=== PATIENT | male | born 1945 | race Hispanic/Latino ===

== ENCOUNTER 2020-09-27 18:22 | Emergency (ER) | payer MEDICARE ==
[~2020-09-27] VITALS: Ht 172.7 cm; Wt 81.6 kg
--- NOTE | 2020-09-27 19:03 | NUR ---
received patient to room 8
--- NOTE | 2020-09-27 19:36 | Emergency Department Note ---
History of Present Illnes History of Present Illness Chief Complaint: General Medicine Complaints History of Present Illness This is a 74 year old male Patient in from home with complaints of poor balance, weakness, disoriented and numbness to his legs that started about 1 hour prior to arrival. Patient denies similar symptoms in the past. Patient states that he still has numbness and poor balance. Patient was ambulatory into triage with assistance from family member. . Historian: Patient, Family Member Arrival Mode: Car Onset (how long ago): hour(s) (starte at 1620) Location: all over Quality: weak all over, dizziness Radiation: Reports non-radiation Severity: moderate Onset quality: sudden Duration (how long): hour(s) (3) Timing of current episode: constant Progression: unchanged Chronicity: new Context: Denies recent illness, Denies recent surgery Relieving factors: none Exacerbating factors: movement Associated symptoms: Reports weakness (all over); Denies confusion Past Medical/Family History Physician Review I have reviewed the patient's past medical and family history. Any updates have been documented here. Past Medical History Recent Fever: No Clinical Suspicion of Infectio: No New/Unexplained Change in Ment: No Past Medical History: Hypertension, Diabetes Other Medical History: BPH Past Surgical History: CABG Social History Smoking Cessation: Never Smoker Counseling Performed: No Alcohol Use: Occasional Any Illegal Drug Use: No Review of Systems Review of Systems Constitutional: Reports no symptoms EENTM: Reports no symptoms Cardiovascular: Reports no symptoms Respiratory: Reports no symptoms Gastrointestinal: Reports no symptoms Genitourinary: Reports no symptoms Musculoskeletal: Reports no symptoms Integumentary: Reports no symptoms Neurological: Reports as per HPI Psychological: Reports no symptoms Endocrine: Reports no symptoms Hematological/Lymphatic: Reports no symptoms Physical Exam Related Data Allergies: Coded Allergies: No Known Allergies (Unverified , 09/27/20) Triage Vital Signs Vital Signs Date Time Temp Pulse Resp B/P (MAP) Pulse Ox O2 Delivery O2 Flow Rate FiO2 09/27/20 18:35 98.3 89 16 192/88 100 09/27/20 19:26 Room Air Vital signs reviewed: Yes Physical Exam CONSTITUTIONAL Constitutional: Present well-developed, Present well-nourished; Absent distressed HENT HENT: Present normocephalic, Present atraumatic, Present oropharynx clear/moist, Present nose normal HENT L/R: Present left ext ear normal, Present right ext ear normal EYES Eyes: Reports PERRL, Reports conjunctivae normal NECK Neck: Present ROM normal PULMONARY Pulmonary: Present effort normal, Present breath sounds normal CARDIOVASCULAR Cardiovascular: Present regular rhythm, Present heart sounds normal, Present capillary refill normal, Present normal rate GASTROINTESTINAL Abdominal: Present soft, Present nontender, Present bowel sounds normal GENITOURINARY Genitourinary: Present exam deferred SKIN Skin: Present warm, Present dry MUSCULOSKELETAL Musculoskeletal: Present ROM normal NEUROLOGICAL Neurological: Present alert, Present oriented x 3, Present no gross motor or sensory deficits, Present abnormal gait (gait mildy unsteady requires mild a ssistance with ambulation) PSYCHOLOGICAL Psychological: Present mood/affect normal, Present judgement normal Results Laboratory Laboratory Laboratory Tests Test 09/27/20 20:39 09/27/20 20:13 09/27/20 18:40 Urine Opiates Screen Negative (NEGATIVE) Urine Methadone Screen Negative (NEGATIVE) Urine Barbiturates Screen Negative (NEGATIVE) Urine Phencyclidine Screen Negative (NEGATIVE) Urine Amphetamines Screen Negative (NEGATIVE) Urine Methamphetamines Screen Negative (NEGATIVE) Urine Benzodiazepines Screen Negative (NEGATIVE) Urine Cocaine Screen Negative (NEGATIVE) Urine Cannabinoids Screen Positive (NEGATIVE) Urine Color Yellow (YELLOW) Urine Clarity Sl cloudy (CLEAR) Urine pH 5.5 (5 - 7) Urine Specific [place] 1.015 (1.010-1.025) Urine Protein Negative (NEGATIVE) Urine Glucose (UA) 500 (NEGATIVE) Urine Ketones Negative (NEGATIVE) Urine Blood Negative (NEGATIVE) Urine Nitrite Negative (NEGATIVE) Urine Bilirubin Negative (NEGATIVE) Urine Urobilinogen 0.2 mg/dL (0.2 - 1) Urine Leukocyte Esterase Negative (NEGATIVE) Urine RBC 0-5 /HPF (0-5) Urine WBC 0-5 /HPF (0-5) Urine Epithelial Cells Few /LPF (NONE) Urine Bacteria Rare /HPF (NONE) White Blood Count 16.13 x10e3/uL (4.8-10.8) Red Blood Count 4.33 x10e6/uL (4.3-5.7) Hemoglobin 13.1 g/dL (14.0-18.0) Hematocrit 40.3 % (38.2-49.6) Mean Corpuscular Volume 93.1 fL (81-99) Mean Corpuscular Hemoglobin 30.3 pg (28-32) Mean Corpuscular Hemoglobin Concent 32.5 g/dL (31-35) Red Cell Distribution Width 13.3 % (11.7-14.4) Platelet Count 409 x10e3/uL (140-360) Neutrophils (%) (Auto) 40.4 % (38.7-80.0) Lymphocytes (%) (Auto) 49.5 % (18.0-39.1) Monocytes (%) (Auto) 6.4 % (4.4-11.3) Eosinophils (%) (Auto) 2.3 % (0.0-6.0) Basophils (%) (Auto) 0.6 % (0.0-1.0) Neutrophils # (Auto) 6.5 (2.1-6.9) Lymphocytes # (Auto) 8.0 (1.0-3.2) Monocytes # (Auto) 1.0 (0.2-0.8) Eosinophils # (Auto) 0.4 (0.0-0.4) Basophils # (Auto) 0.1 (0.0-0.1) Absolute Immature Granulocyte (auto 0.13 x10e3/uL (0-0.1) Prothrombin Time 12.5 seconds (11.9-14.5) Prothromb Time International Ratio 0.89 Activated Partial Thromboplast Time 25.8 seconds (23.8-35.5) Sodium Level 139 mmol/L (136-145) Potassium Level 4.0 mmol/L (3.5-5.1) Chloride Level 105 mmol/L (98-107) Carbon Dioxide Level 25 mmol/L (22-29) Anion Gap 13.0 mmol/L (8-16) Blood Urea Nitrogen 11 mg/dL (7-26) Creatinine 1.14 mg/dL (0.72-1.25) Estimat Glomerular Filtration Rate > 60 ML/MIN (60-) BUN/Creatinine Ratio 10 (6-25) Glucose Level 335 mg/dL (74-118) Calcium Level 8.8 mg/dL (8.4-10.2) Total Bilirubin 0.4 mg/dL (0.2-1.2) Aspartate Amino Transf (AST/SGOT) 16 IU/L (5-34) Alanine Aminotransferase (ALT/SGPT) 17 IU/L (0-55) Alkaline Phosphatase 74 IU/L (40-150) Creatine Kinase 60 IU/L (30-200) Creatine Kinase MB 1.80 ng/mL (0-5.0) Troponin I 0.003 ng/mL (0-0.300) Total Protein 7.6 g/dL (6.5-8.1) Albumin 3.9 g/dL (3.5-5.0) Globulin 3.7 g/dL (2.3-3.5) Albumin/Globulin Ratio 1.1 (0.8-2.0) Lab results reviewed: Yes Imaging Imaging results reviewed: Yes Impressions Procedure: [id number] CT/CT CHEST W Exam Date: 09/27/20 Exam Time: 2308 REPORT STATUS: Signed EXAM: CT Chest WITH contrast 09/27/2020 11:08 PM INDICATION: EVAL FINDINGS ON CXR nodular densities in the right middle lung seen on x-ray COMPARISON: Same day x-ray TECHNIQUE: Chest was scanned utilizing a multidetector helical scanner from the lung apex through the level of the adrenal glands with administration of IV contrast. Coronal and sagittal reformations were obtained. Routine protocol was performed. IV CONTRAST: 100 mL of Omnipaque 300 COMPLICATIONS: None FINDINGS: LINES/ TUBES: None. LUNGS AND AIRWAYS: The lungs are unremarkable. Airways are normal. 1.3 cm nodular focus of groundglass the right lower lobe. Cluster of calcifications in the right upper lobe, some of which have a tubular appearance. Small cluster of punctate calcifications in the peripheral right upper lobe. 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 There are a couple subdiaphragmatic enhancing nodules. There are multiple pleural-based and diaphragmatic based lobular enhancing lesions on the left. The largest measures 2.0 cm. Scattered hepatic calcified granulomas. Cholelithiasis without CT evidence of acute cholecystitis. HEART AND MEDIASTINUM: The thyroid gland is normal. No mediastinal, hilar or axillary lymphadenopathy. The heart is normal in size. There is no pericardial effusion. hemithorax. BONES: There are degenerative changes in the thoracic spine. Old right clavicle fracture. Old left rib fractures. SOFT TISSUES: Unremarkable. IMPRESSION: 1. Broncholithiasis and calcified granulomas account for the radiographic nodular densities described on recent chest x-ray. 2. 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 Nuclear medicine sulfur colloid scan or tagged red blood cell scan could be helpful if confirmation is desired. 3. 1.3 cm groundglass nodule in the right lower lobe. Low-dose chest CT recommended in 3 months. Signed by: Rocio Alan MD on 09/28/2020 12:02 AM Dictated By: ROCIO ALAN MD Transcribed By: SIRISHA on 09/28/201 COPY TO: TIFFANIE MYLES MD~ Procedure: [id number] CT/CT BRAIN WO Exam Date: 09/27/20 Exam Time: 1999 REPORT STATUS: Signed Examination: CT BRAIN WO History:^N ^generalized weakness ^20200927 ^1999 ^Y Comparison studies:None Technique: Axial images were obtained from the skull base to the vertex. Coronal and sagittal images reconstructed from the axial data. Dose modulation, iterative reconstruction, and/or weight based adjustment of the mA/kV was utilized to reduce the radiation dose to as low as reasonably achievable. Intravenous contrast: None Findings: Scalp: No abnormalities. Bones: No fractures, blastic or lytic lesions. Brain sulci: Appropriate for age. Ventricles: Normal in size and configuration. No hydrocephalus. Extra-axial space: No abnormalities. Parenchyma: Chronic left supramarginal gyrus infarct. No masses, hemorrhage, or acute cortical based vascular insults.. Sellar/suprasellar region: No abnormalities. Craniocervical junction: Patent foramen magnum. No Chiari one malformation. Incidental findings: None. Impression: No acute intracranial abnormalities. Chronic left supramarginal gyrus infarct. Signed by: Dr. Lin Serrato M.D. on 09/27/2020 8:58 PM Dictated By: LIN RICHARDS MD 57 Transcribed By: SIRISHA on 09/27/202057 COPY TO: TIFFANIE MYLES MD~ Procedure: [id number] DX/CHEST SINGLE (PORTABLE) Exam Date: 09/27/20 Exam Time: 1999 REPORT STATUS: Signed EXAMINATION: CHEST SINGLE (PORTABLE) INDICATION: ^generalized weakness ^20200927 ^1999 ^Y COMPARISON: None FINDINGS: TUBES and LINES: None. LUNGS: Normal lung volumes. Indeterminate nodular densities in the right middle. No focal consolidations. Bibasilar atelectasis. PLEURA: No pleural effusion or pneumothorax. HEART AND MEDIASTINUM: The cardiomediastinal silhouette is unremarkable. BONES AND SOFT TISSUES: No acute osseous lesion. Soft tissues are unremarkable. UPPER ABDOMEN: No free air under the diaphragm. IMPRESSION: 1. Indeterminate nodular densities in the right middle lung. Recommend further evaluation with CT of the chest. 2. No focal consolidation, pleural effusion or pneumothorax. Signed by: Sandra Norris MD on 09/27/2020 9:20 PM Dictated By: SANDRA NORRIS MD 19 Transcribed By: SIRISHA on 09/27/202119 COPY TO: TIFFANIE MYLES MD~ Procedures 12 Lead ECG Interpretation ECG Interpretation : ECG: ECG 1 Pony Worker: Interpreted by ED physician Date: Sep 27, 2020 Time: 19:15 Rhythm: sinus rhythm Rate: normal BPM: 77 QRS axis: normal ST segments normal: Yes T waves normal: Yes Other findings: no other findings Clinical Impression: normal ECG Assessment & Plan Medical Decision Making MDM pt with generalized weakness, dizzy, feels off balance cbc, cmp, cardiac enzymes, ct brain, ua ordered to eval for cva, electrolyte abnormality, uti, myocardial infarction pt's has arrive with similar symptoms as well, per family pt ate a "albanian candy" before feeling bad, ate the same and also another family reportedly ate same candy and is having similar symptoms as well. uds ordered Reassessment Reassessment time: 05:02 Reassessment pt feels much better and is ambulatory without assistance Assessment & Plan Final Impression: (1) Accidental drug ingestion (2) Use of cannabinoid edibles Depart Disposition: HOME, SELF-CARE Last Vital Signs Date Time Temp Pulse Resp B/P (MAP) Pulse Ox O2 Delivery O2 Flow Rate FiO2 09/27/20 19:26 74 20 182/85 100 Room Air 09/27/20 18:35 98.3 TIFFANIE MYLES MD Sep 27, 2020 19:36
[2020-09-27 19:38] LABS: BASOPHILS # (AUTO) 0.1 (0.0-0.1); BASOPHILS % 0.6 % (0.0-1.0); EOSINOPHILS # (AUTO) 0.4 (0.0-0.4); EOSINOPHILS % 2.3 % (0.0-6.0); HEMATOCRIT 40.3 % (38.2-49.6); HEMOGLOBIN 13.1 g/dL (14.0-18.0); LYMPHOCYTES % 49.5 % (18.0-39.1); MEAN CORPUSCULAR HEMOGLOBIN 30.3 pg (28-32); MEAN CORPUSCULAR HGB CONC 32.5 g/dL (31-35); MEAN CORPUSCULAR VOLUME 93.1 fL (81-99); MONOCYTES % 6.4 % (4.4-11.3); NEUTROPHILS # (AUTO) 6.5 (2.1-6.9); NEUTROPHILS % 40.4 % (38.7-80.0); PLATELET COUNT 409 x10e3/uL (140-360); RED BLOOD COUNT 4.33 x10e6/uL (4.3-5.7); RED CELL DISTRIBUTION WIDTH 13.3 % (11.7-14.4)
[2020-09-27 19:42] LABS: INR 0.89; PROTHROMBIN TIME 12.5 seconds (11.9-14.5)
[2020-09-27 19:43] LABS: PARTIAL THROMBOPLASTIN TIME 25.8 seconds (23.8-35.5)
[2020-09-27] MEDS ORDERED: MECLIZINE HCL 12.5 MG TAB PO ONE (19:45)
[2020-09-27 19:51] LABS: ALANINE AMINOTRANSFERASE 17 IU/L (0-55); ALBUMIN 3.9 g/dL (3.5-5.0); ALBUMIN/GLOBULIN RATIO 1.1 (0.8-2.0); ALKALINE PHOSPHATASE 74 IU/L (40-150); BLOOD UREA NITROGEN 11 mg/dL (7-26); BUN/CREATININE RATIO 10 (6-25); CALCIUM 8.8 mg/dL (8.4-10.2); CARBON DIOXIDE 25 mmol/L (22-29); CHLORIDE 105 mmol/L (98-107); CREATINE KINASE 60 IU/L (30-200); CREATININE, SERUM 1.14 mg/dL (0.72-1.25); EST GLOMERULAR FILTRATION RATE > 60 ML/MIN (60-); GLUCOSE 335 mg/dL (74-118); SODIUM 139 mmol/L (136-145)
--- NOTE | 2020-09-27 19:51 | NUR ---
patient rounds: patient in bed connected to cardiac monitoring talking to son.
[2020-09-27 20:55] LABS: AMPHETAMINES SCREEN,URINE NEGATIVE (NEGATIVE); BENZODIAZEPINES SCREEN,URINE NEGATIVE (NEGATIVE); PHENCYCLIDINE SCREEN,URINE NEGATIVE (NEGATIVE)
--- NOTE | 2020-09-27 21:01 | Diagnostic Imaging Report ---
Examination: CT BRAIN WO History:^N ^generalized weakness ^20200927 ^1999 ^Y Comparison studies:None Technique: Axial images were obtained from the skull base to the vertex. Coronal and sagittal images reconstructed from the axial data. Dose modulation, iterative reconstruction, and/or weight based adjustment of the mA/kV was utilized to reduce the radiation dose to as low as reasonably achievable. Intravenous contrast: None Findings: Scalp: No abnormalities. Bones: No fractures, blastic or lytic lesions. Brain sulci: Appropriate for age. Ventricles: Normal in size and configuration. No hydrocephalus. Extra-axial space: No abnormalities. Parenchyma: Chronic left supramarginal gyrus infarct. No masses, hemorrhage, or acute cortical based vascular insults.. Sellar/suprasellar region: No abnormalities. Craniocervical junction: Patent foramen magnum. No Chiari one malformation. Incidental findings: None. Impression: No acute intracranial abnormalities. Chronic left supramarginal gyrus infarct. Signed by: Dr. Lin Serrato M.D. on 09/27/2020 8:58 PM
[2020-09-27 21:13] LABS: CLARITY,URINE SL CLOUDY (CLEAR); COLOR,URINE YELLOW (YELLOW)
[2020-09-27 21:14] LABS: KETONES,URINE NEGATIVE (NEGATIVE); LEUKOCYTE ESTERASE ,URINE NEGATIVE (NEGATIVE); NITRITE,URINE NEGATIVE (NEGATIVE); PROTEIN,URINE DIPSTICK NEGATIVE (NEGATIVE)
[2020-09-27 21:15] LABS: BACTERIA,URINE RARE /HPF; BILIRUBIN,URINE NEGATIVE (NEGATIVE); EPITHELIAL CELLS,URINE FEW /LPF; RBC,URINE 0-5 /HPF (0-5); URINE UROBILINOGEN 0.2 mg/dL (0.2 - 1); WBC,URINE (MAN) 0-5 /HPF (0-5)
--- NOTE | 2020-09-27 21:23 | Diagnostic Imaging Report ---
EXAMINATION: CHEST SINGLE (PORTABLE) INDICATION: ^generalized weakness ^20200927 ^1999 ^Y COMPARISON: None FINDINGS: TUBES and LINES: None. LUNGS: Normal lung volumes. Indeterminate nodular densities in the right middle. No focal consolidations. Bibasilar atelectasis. PLEURA: No pleural effusion or pneumothorax. HEART AND MEDIASTINUM: The cardiomediastinal silhouette is unremarkable. BONES AND SOFT TISSUES: No acute osseous lesion. Soft tissues are unremarkable. UPPER ABDOMEN: No free air under the diaphragm. IMPRESSION: 1. Indeterminate nodular densities in the right middle lung. Recommend further evaluation with CT of the chest. 2. No focal consolidation, pleural effusion or pneumothorax. Signed by: Berna Pearson MD on 09/27/2020 9:20 PM
--- OUTSIDE RECORDS SUMMARY | 2020-09-27 21:51 | XMS REPORT | Continuity of Care Document ---
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 Social History Social Habit Start Date Stop Date Quantity Comments Source History SDOH Alcohol Std Drinks Julian Fermin History SDOH Alcohol Binge Julian Fermin Sex Assigned At Brenda Fermin Tobacco use and exposure 2019-01-18 00:00:00 2019-01-18 00:00:00 Saniyae r used Julian Fermin Alcohol intake 2019-01-18 00:00:00 2019-01-18 00:00:00 Current non-drinker of alcohol (finding) Julian Fermin History SDOH Alcohol Frequency 2019-01-18 00:00:00 2019-01-18 00:00:0 0 1 Julian Fermin Smoking Status Start Date Stop Date Source Never smoker Julian huggins Medications Ordered Medication Name Filled Medication Name Start Date Stop Da te Current Medication? Ordering Clinician Indication Dosage Frequency Signature (SIG) Comments Components Source atorvastatin (LIPITOR) 40 MG tablet 2019-01-18 16:15:16 Yes 40mg QD Take 40 mg by mouth daily. Julian Fermin pregabalin (LYRICA) 75 MG capsule 2019-01-18 16:15:16 Yes 75mg Q.5D Take 75 mg by mouth 2 (two) times a day. Geronimo ton Yazdanism allopurinol (ZYLOPRIM) 100 MG tablet 2019-01-18 16:15:16 Ye s 100mg QD Take 100 mg by mouth daily. Jordan Meth odist enalapril (VASOTEC) 20 MG tablet 2019-01-18 16:15:16 Yes 20mg QD Take 20 mg by mouth daily. Jordan Yazdanism finasteride (PROSCAR) 5 mg tablet 2019-01-18 00:00:00 Yes BPH with obstruction/lower urinary tract symptoms 5mg QD Take 1 tablet (5 mg total) by mouth daily. Jordan Yazdanism tamsulosin (FLOMAX) 0.4 mg capsule 2019-01-18 00:00:00 202 23:59:00 No BPH with obstruction/lower urinary tract symptoms .4mg QD Take 1 capsule (0.4 mg total) by mouth daily. Julian Method ist Procedures This patient has no known procedures. Plan of Care Planned Activity Planned Date Details Comments Source Future Scheduled Test 2020-06-10 00:00:00 INFLUENZA VACCINE [code = INFLUENZA VACCINE] [facility] [place] [place] Future Scheduled Test 2012 00:00:00 65+ PNEUMOCOCCAL V ACCINE (1 of 1 - PPSV23) [code = 65+ PNEUMOCOCCAL VACCINE (1 of 1 - PPSV23)] [facility] [place] [place] Future Scheduled Test 1997 00:00:00 COLONOSCOPY SCREEN ING [code = COLONOSCOPY SCREENING] [facility] [place] [place] Future Scheduled Test 1997 00:00:00 SHINGLES VACCINES (#1) [code = SHINGLES VACCINES (#1)] [facility] [place] [place] Results Test Description Test Time Test Comments Results Result Comments Source CHEST SINGLE (PORTABLE) 2020-09-27 21:19:00 [facility] 1945 Sex: M [place] [address] Patient Name: JOHN CHRISTOPHER MR #: [id number] : 1945 Age/Sex: 74/M Req #: [id number] Adm Physician: Ordered by: TIFFANIE MYLES MD Report #: [id number] Location: ER Room/Bed: Procedure: [id number] DX/CHEST SINGLE (PORTABLE) Exam Date: 09/27/20 Exam Time: 1999 REPORT STATUS: Signed EXAMINATION: CHEST SINGLE (SHANTEL BLE) INDICATION: generalized weakness 20200927 Y COMPARISON: None FINDINGS: TUBES and LINES: None. LUNGS: Normal lung volumes. Indeterminate nodular densities in the right middle. No focal consolidations. Bibasilar atelectasis. PLEURA: No pleural effusion or pneumothorax. HEART AND MEDIASTINUM: The cardiomediastinal silhouette is unremarkable. BONES AND SOFT TISSUES: No acute osseous lesion. Soft tissues are unremarkable. UPPER ABDOMEN: No free air under the diaphragm. IMPRESSION: 1. Indeterminate nodular densities in the right middle lung. Recommend further evaluation with CT of the chest. 2. No focal consolidation, pleural effusion or pneumothorax. Signed by: Sandra Norris MD on 09/27/2020 9:20 PM Dictated By: SANDRA NORRIS MD 19 Transcribed By: SIRISHA on 09/27/202119 COPY TO: TIFFANIE MYLES MD CT BRAIN WO 2020-09-27 20:55:00 [facility] 1945 Sex: M [facility] [address] [place] [address] Patient Name: JOHN CHRISTOPHER MR #: [id number] : 1945 Age/Sex: 74/M Req #: [id number] Adm Physician: Ordered by: TIFFANIE MYLES MD Report #: [id number] Location: Room/Bed: Procedure: [id number] CT/CT BRAIN WO Exam Date: 09/27/20 Exam Time: 1999 REPORT STATUS: Signed Examination: CT BRAIN WO History: N gen eralized weakness 20200927 Y Comparison studies:None Technique: Axial images were obtained from the skull base to the vertex. Coronal and sagittal images reconstructed from the axial data. Dose modulation, iterative reconstruction, and/or weight based adjustment of the mA/kV was utilized to reduce the radiation dose to as low as reasonably achievable. Intravenous contrast: None Findings: Scalp: No abnormalities. Bones: No fractures, blastic or lytic lesions. Brain sulci: Appropriate for age. Ventricles: Normal in size and configuration. No hydrocephalus. Extra-axial space: No abnormalities. Parenchyma: Chronic left supramarginal gyrus infarct. No masses, hemorrhage, or acute cortical based vascular insults.. Sellar/suprasellar region: No abnormalities. Craniocervical junction: Patent foramen magnum. No Chiari one malformation. Incidental findings: None. Impression: No acute intracranial abnormalities. Chronic left supramarginal gyrus infarct. Signed by: Dr. Kim Serrato M.D. on 09/27/2020 8:58 PM Dictated By: KIM RICHARDS MD 57 Transcribed By: SIRISHA on 09/27/202057 COPY TO: TIFFANIE MYLES MD
--- OUTSIDE RECORDS SUMMARY | 2020-09-27 21:51 | XMS REPORT | Clinical Summary ---
Author Author [facility] Address Unknown Phone Unavailable Care Team Providers Care Silk Screen Printing Racker Name Role Phone Kevin Ruiz MD PCP Allergies No Known Active Allergies Medications End Date Status Medication Sig Dispensed Refills Start Date Active atorvastatin (LIPITOR) 40 Take 40 mg by 0 MG tablet mouth daily. Active pregabalin (LYRICA) 75 MG Take 75 mg by 0 capsule mouth 2 (two) times a day. Active allopurinol (ZYLOPRIM) Take 100 mg 0 100 MG tablet by mouth daily. Active enalapril (VASOTEC) 20 MG Take 20 mg by 0 tablet mouth daily. Active finasteride (PROSCAR) 5 Take 1 tablet 90 tablet 3 mg tabletIndications: BPH (5 mg total) 9 with obstruction/lower by mouth urinary tract symptoms daily. 01/18/2020 tamsulosin (FLOMAX) 0.4 Take 1 90 capsule 3 201 mg capsuleIndications: capsule (0.4 9 BPH with mg total) by obstruction/lower urinary mouth daily. 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 Never 01/18/2019 How many drinks containing alcohol do you have on No t asked a typical day when you are drinking? How often do you have six or more drinks on one Not asked occasion? Sex Assigned at Date Recorded Not on file Last Filed Vital Signs Not on file Plan of Treatment Health Maintenance Due Date Last Done Comments COLONOSCOPY SCREENING 1997 SHINGLES VACCINES (#1) 1997 65+ PNEUMOCOCCAL VACCINE 2012 (1 of 1 - PPSV23) INFLUENZA VACCINE 06/10/2020 Results Not on fileafter 09/27/2019 Insurance Type Payer Benefit Subscriber ID Effective Phone Address Plan / Dates Group [facility] MEDICARE AARP [id number] 2018-P MEDICARE resent COMPLETE [facility] Advance Directives For more information, please contact: [phone] Patient Inspector Precision [employer] Explanation Type Date Recorded Advance Directives, Living Will and Medical Power of Business Intelligence Engineer
[2020-09-27] MEDS ORDERED: SODIUM CHLORIDE 0.9% 50ML 50 ML ONE (23:08)
[2020-09-27] MEDS ORDERED: IOPAMIDOL 370 MG/ML 200 ML INFUS..BTL INJ ONE (23:08)
--- NOTE | 2020-09-28 00:05 | Diagnostic Imaging Report ---
EXAM: CT Chest WITH contrast 09/27/2020 11:08 PM INDICATION: EVAL FINDINGS ON CXR nodular densities in the right middle lung seen on x-ray COMPARISON: Same day x-ray TECHNIQUE: Chest was scanned utilizing a multidetector helical scanner from the lung apex through the level of the adrenal glands with administration of IV contrast. Coronal and sagittal reformations were obtained. Routine protocol was performed. IV CONTRAST: 100 mL of Omnipaque 300 COMPLICATIONS: None FINDINGS: LINES/ TUBES: None. LUNGS AND AIRWAYS: The lungs are unremarkable. Airways are normal. 1.3 cm nodular focus of groundglass the right lower lobe. Cluster of calcifications in the right upper lobe, some of which have a tubular appearance. Small cluster of punctate calcifications in the peripheral right upper lobe. 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 There are a couple subdiaphragmatic enhancing nodules. There are multiple pleural-based and diaphragmatic based lobular enhancing lesions on the left. The largest measures 2.0 cm. Scattered hepatic calcified granulomas. Cholelithiasis without CT evidence of acute cholecystitis. HEART AND MEDIASTINUM: The thyroid gland is normal. No mediastinal, hilar or axillary lymphadenopathy. The heart is normal in size. There is no pericardial effusion. hemithorax. BONES: There are degenerative changes in the thoracic spine. Old right clavicle fracture. Old left rib fractures. SOFT TISSUES: Unremarkable. IMPRESSION: 1. Broncholithiasis and calcified granulomas account for the radiographic nodular densities described on recent chest x-ray. 2. 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 Nuclear medicine sulfur colloid scan or tagged red blood cell scan could be helpful if confirmation is desired. 3. 1.3 cm groundglass nodule in the right lower lobe. Low-dose chest CT recommended in 3 months. Signed by: Vignesh Simental MD on 09/28/2020 12:02 AM
--- NOTE | 2020-09-28 01:51 | NUR ---
PATIENT ROUNDS: PATIENT SLEEPING, CONNECTED TO CARDIAC MONITORING
[2020-09-28 05:08] VITALS: BP 158/96
== END 2020-09-28 05:22 | disposition home or self-care (01) ==
LOC: ER 18:55
DX: R53.1 Weakness (principal); T40.7X5A Adverse effect of cannabis (derivatives), initial encounter; E11.65 Type 2 diabetes mellitus with hyperglycemia; I10 Essential (primary) hypertension
CPT/HCPCS: 36415; 70450; 71045; 71260; 80053; 80307; 81001; 82550; 82553; 84484; 85025; 85610; 85730; 93005; 99284; J8597; Q9967